=== PATIENT | female | born 1960 | race Caucasian/White ===

== ENCOUNTER 2023-10-11 19:28 | Emergency (ER) | payer BC, SELFPAY ==
[2023-10-11 19:32] VITALS: BP 127/76
[2023-10-11] MEDS: ZOFRAN ODT (ORALLY DISINTEGRATING) 4 MG PO (19:59)
[2023-10-11 20:01] LABS: % Basophils 0.4 % (0-2); % Eosinophils 0.2 % (0-6); % Immature Granulocytes 0.2 % (0-0.5); % Lymphocytes 43.4 % (20.5-51.1); % Neutrophils 42.8 % (42.2-75.2); Absolute Monocytes 0.6 10^3/uL (0.1-0.6); Absolute Neutrophils 1.9 10^3/uL (1.4-6.5); Hematocrit 27.3 % (37.0-47.0); Hemoglobin 8.7 g/dL (12.0-16.0); Mean Corp Hgb Conc. 31.9 g/dL (33.0-37.0); Mean Corpuscular Hgb 23.5 pg (27.0-31.0); Mean Corpuscular Volume 73.8 fL (81.0-99.0); Mean Platelet Volume 9.9 fL (7.4-10.4); Nucleated Red Blood Cells % 0 %; Platelet Count 341 10^3/uL (130-400); Red Cell Dist. Width 14.9 % (11.5-14.5); White Blood Cell Count 4.5 10^3/uL (4.8-10.8)
[2023-10-11 20:05] LABS: Urine Albumin Negative (Neg - Trace); Urine Bilirubin Negative (Negative); Urine Character Clear (Clear); Urine Color Yellow; Urine Glucose Negative (Negative); Urine Ketone Negative (Negative); Urine Leukocyte Trace (Negative); Urine Nitrite Negative (Negative); Urine Occult Blood Negative (Negative); Urine Urobilinogen Negative (Neg - 1+)
[2023-10-11 20:19] LABS: ALT (SGPT) 31 U/L (0-35); AST (SGOT) 37 U/L (14-36); Albumin 4.1 g/dl (3.5-5.0); Alkaline Phosphatase 95 U/L (38-126); Blood Urea Nitrogen 16 mg/dl (7-17); Calcium 9.4 mg/dl (8.4-10.2); Carbon Dioxide 25 mmol/L (22-30); Chloride 99 mmol/L (98-107); Glucose 90 mg/dl (70-99); Lipase 183 U/L (23-300); Potassium 4.7 mmol/L (3.5-5.1); Sodium 133 mmol/L (135-145); Total Bilirubin 0.3 mg/dl (0.2-1.3); Total Protein 6.5 g/dl (6.3-8.2); eGFR > 60.00
[2023-10-11 20:21] LABS: Urine Bacteria Few (Negative); Urine Red Blood Cell 0-2 /HPF (0-2); Urine Squamous Cell 0-2 /LPF (Few)
[2023-10-11 20:25] LABS: COVID-19 Antigen Negative (Negative)
--- NOTE | 2023-10-11 21:29 | ED.GENMED ---
History of Present Illness
General
Chief Complaint: Abdominal Symptoms
Source: patient
Exam Limitations: none
Time Seen by Provider: 10/11/23 21:05
History of Present Illness
History of Present Illness:
This is a 63 year old female that comes in with c/o diarrhea. States that she has had severe diarrhea for the past 5 days. States that she is going a little less today but has gone 12 times today. State that she has abd pain and she has not been
able to eat or drink as it goes right through her. States that she was in [facility] on a resort and she never left there. States that she came home on Tuesday and the diarrhea started on Tuesday. States that she may have had a fever on Tuesday.
States that she is nauseated and has a headache. Denies any chills, chest pain, SOB, vomiting, dizziness, urinary burning.
Past History
Past History
ED Past Medical History: Psychiatric (Anxiety); Negative Asthma, HTN, Hypercholesterolemia or NIDDM
ED Past Surgical History: None
Social History
Tobacco: Non-smoker
Alcohol: Occasional
Personal:
Living: with family
Review of Systems
Review of Systems
All Other Systems: ROS reviewed and negative except as documented in HPI and ROS
Constitutional: Reports fever (Questionable on Tuesday); Denies chills
EENT: Reports no symptoms
Respiratory: Reports no symptoms; Denies cough
Cardiac: Reports no symptoms; Denies chest pain
ABD/GI: Reports abdominal pain, nausea and diarrhea; Denies vomiting
: Reports no symptoms; Denies dysuria, frequency or urgency
Musculoskeletal: Reports no symptoms
Skin: Reports no symptoms
Neurological: Reports headache; Denies dizzy
Psychiatric: Reports no symptoms
Phy Exam
General Physical Exam
General Presentation: no apparent distress
General age: appears stated age
General Skin: warm and dry
General Habitus: normal
General Mental: alert
General Hydration: dry mucous membranes
ENT Exam
ENT Exam: TM's normal, pharynx normal and neck supple
Eye Exam
Eye Exam: EOMI
Cardiovascular Exam
Cardiovascular Exam: regular rate/rhythm, no edema, no murmur and normal peripheral pulses
Pulmonary Exam
Pulmonary Exam: lungs clear, no respiratory distress, no rales, chest non tender, no crackles, no rhonchi, no wheezing and no cough
Gastrointestinal Exam
Gastrointestinal Exam: soft, no organomegaly, no pulsatile mass, non distended, tender (Generalized tenderness with palpation) and other (Hyperactive bowel sounds)
Musculoskeletal Exam
Musculoskeletal Exam: full ROM and no edema
Skin Exam
Skin Exam: normal color, warm/dry, no rash and no petechia
Psychiatric Exam
Psychiatric Exam: normal mood/affect
Course
Orders/Labs/Results
Orders:
Orders
10/11/23 19:38
Electrocardiogram (*1) Urgent
Reason for Study: Abdominal Pain
EKG- Treatment ONCE
IV Insert/Care/Rem.- Treatment PRN
10/11/23 19:43
Complete Blood Count/With Diff Urgent
Comprehensive Metabolic Panel Urgent
Lipase Urgent
10/11/23 19:44
Ondansetron Orally Disint [Zofran Odt (Orally Disintegrating)] 4 mg .ROUTE .K-MED ONE
10/11/23 19:56
Urinalysis Reflex To Culture Urgent
Date Specimen was Collected: 10/11/23
Time Specimen was Collected: 19:38
Urine Microscopic Reflex Cult Urgent
10/11/23 19:59
Ondansetron Orally Disint [Zofran Odt (Orally Disintegrating)] 4 mg PO NOW STA
10/11/23 20:01
COVID-19 Antigen Urgent
Source: Nasal Swab
Comment: .
10/11/23 21:28
CT Abd/pel W Iv And Oral Contr Urgent
Comment:
Reason For Exam: Generalized abd pain
STOOL [C difficile Antigen & Toxins] Urgent
CARROLL Source: Feces/Stool
Specimen Description:
Date Specimen was Collected: 10/11/23
Time Specimen was Collected: 22:52
Stool Culture Urgent
CARROLL Source: Feces/Stool
Specimen Description:
Date Specimen was Collected: 10/11/23
Time Specimen was Collected: 22:52
Stool For WBC Urgent
CARROLL Source: Feces/Stool
Specimen Description:
Date Specimen was Collected: 10/11/23
Time Specimen was Collected: 22:52
0.9% Sodium Chloride 1000 ml [Nss] 1,000 ml IV BOLUS
Iohexol [Omnipaque] See Protocol PO NOW STA
Abnormal Lab Results
10/11/23 10/11/23
19:43 19:56
WBC 4.5 L 10^3/uL
(4.8-10.8)
RBC 3.70 L 10^6/uL
(4.20-5.40)
Hgb 8.7 L g/dL
(12.0-16.0)
Hct 27.3 L %
(37.0-47.0)
MCV 73.8 L fL
(81.0-99.0)
MCH 23.5 L pg
(27.0-31.0)
MCHC 31.9 L g/dL
(33.0-37.0)
RDW 14.9 H %
(11.5-14.5)
Monocytes % 13.0 H %
(1.7-9.3)
Sodium 133 L mmol/L
(135-145)
AST 37 H U/L
(14-36)
Leukocyte Esterase Rfl Trace A
(Negative)
Urine Bacteria (Reflex) Few A
(Negative)
10/11/23 19:43
10/11/23 19:43
WBC slighty low. H/H low Anemic, Sodium slightly low. AST very slightly elevated. Urine negative for infection. COVID negative. Lipase normal at 183
Vital Signs
Initial and Last Documented VS:
Initial Vital Signs
Temp Pulse Resp BP Pulse Ox
98.6 F 89 20 127/76 100
10/11/23 19:32 10/11/23 19:32 10/11/23 19:32 10/11/23 19:32 10/11/23 19:32
Last Documented Vital Signs
Temp Pulse Resp BP Pulse Ox
98.6 F 81 20 115/72 98
10/11/23 19:32 10/11/23 21:55 10/11/23 19:32 10/11/23 21:55 10/11/23 21:55
MDM/Problems Addressed
Differential Diagnosis Includes:
Colitis, Enteritis, Travel diarrhea
MDM/Problems Addressed:
This is a 63 year old female that comes in with c/o abd pain and diarrhea. States that she has severe diarrhea for the past 5 days. States that it has stopped some in the past 2 days but she has gone 12 times today. States that she can't eat or keep
anything in her as it runs right through.
Will get labs. CT scan, Give IV fluids and Medicated for nausea.
Back into see patient. Explained that her Blood work shows anemia and that her CT shows that she has enteritis. Explained that this will go away like it came. Patient to stay away form milk and milk products. Increase her water intake to 8-8oz
glasses daily. Try eating chicken, rice and potatoes as they are easily digested. Patient can use Imodium as needed. Follow up with the family doctor. Return with fever, increased abd pain, or any other concerns.
Chronic conditions affecting care:
NA
Acute Exacerbation and/or Progression of Chronic Illness:
NA
*Radiology
Radiology exam reviewed: radiology read reviewed (CT- Night hawk- Diffuse small bowel wall thickening, compatible with underlying enteritis. Fluid within the colon, compatible ith underling diarrhea state. No bowel obstruction. Gallbladder is
decompressed. MIld periportal edema, likely in the setting of volume resuscitation. Incidentals: ) and all reviewed NAD by ED Provider (CT cont-No obstructive uropathy. No hepatic or pancreatic mass. CBD measures up to 6mm, within normal limits for
age. No abdominal aortic aneurysm. No acute osseous abnormality. No acute abnormality within the viualized lungs. No acute abnormality within the visualized soft tissues. )
*Pulse Oximetry
Patient hypoxic: no
*EKG
Interpreted by ED Provider?: NA
Rate: EKG- N/A
*Irrigation System Installer Interpretation
Rate: Irrigation System Installer- N/A
*Critical Care Note
Total Time (30-74mins, 75-104mins- exclusive of procedures): Not Applicable
ED Attending Note
-
Portions of this chart may have been created with voice recognition software.� Occasional wrong word or��sound alike� substitutions may have occurred due to the inherent limitations of voice recognition software.
Discharge Plan
Departure
Patient Disposition: Home (Routine Discharge)
Date of Disposition: 10/12/23
Time of Disposition: 00:47
Patient with high blood pressure during this ER visit?: No
Condition: Good
Covid-19: Negative COVID-19
Discharge Problem:
Enteritis
Instructions: Diarrhea in teens and adults
Referrals:
NONE,* [Family Provider] -
Activity Restrictions/Additional Instructions:
As discussed, your blood work shows that you are anemic. This can be followed up by the family doctor. Your CT shows that you have Enteritis. This is a viral syndrome that will go away just like it came. Please stay away form Milk and milk products
as long as you have diarrhea. Things that are easily digested is Chicken, rice and potatoes. You can also eat bananas as they are binding. Please increase your water intake to 8-8oz glasses daily. Follow up with the family doctor. You may use
Imodium as needed. IF YOU HAVE ANY FEVER, INCREASED OR CHANGING ABD PAIN, OR YOU HAVE ANY OTHER CONCERNS PLEASE RETURN TO THE EMERGENCY ROOM.
Interventions
Interventions:
*Risk Screen - Suicide Last Done: 10/11/23 19:32
*General Assessment Last Done: 10/11/23 19:32
*Neglect/Abuse Screening Last Done: 10/11/23 19:32
ED- Fall Risk Assessment Last Done: 10/11/23 19:32
*ED COVID-19 Vaccine History Last Done: 10/11/23 19:32
Discharge Date and Time
Print Language: ARMENIAN
[2023-10-11] MEDS: NSS 1000 IV (21:49)
[2023-10-11] MEDS: OMNIPAQUE 50 ML PO (21:50)
[2023-10-11 21:55] VITALS: BP 115/72
[2023-10-11 21:56] VITALS: BMI 21.2
[2023-10-12 00:54] VITALS: BP 133/81
== END 2023-10-12 00:55 | disposition home or self-care (01) ==
LOC: EMR 19:28
PROVIDERS: Emergency Medicine; EMERGENCY PHYSICIAN Emergency Medicine
DX: K52.9 Noninfective gastroenteritis and colitis, unspecified (principal); R19.7 Diarrhea, unspecified; F41.9 Anxiety disorder, unspecified; D64.9 Anemia, unspecified
CPT/HCPCS: 99284; 96360; 74177; 80053; 81003; 81015; 83690; 85025; 87045; 87046; 87077; 87324; 87427; 87449; 87811; 89055; 93005; Q9967

== ENCOUNTER 2023-10-15 08:45 | Emergency (ER) | payer BC, SELFPAY ==
[2023-10-15] VITALS (7 sets, daily range): BP systolic 114–134; BP diastolic 71–83; BMI 24.2
--- NOTE | 2023-10-15 09:54 | ED.GENMED ---
History of Present Illness
General
Chief Complaint: Abdominal Pain
Source: patient
Exam Limitations: none
Time Seen by Provider: 10/15/23 09:45
Nursing documentation reviewed up to this point in time: agreed with
History of Present Illness
History of Present Illness:
63-year-old female presents to the ER complaining of diarrhea. Patient was seen here April 12 4 days ago also for diarrhea. At that time she had diarrhea for the past 5 days after being in [place] patient presents back today with continued
diarrhea. Diarrhea has been over 10 days. She complains of at least 20 episodes of watery diarrhea per day with eating or drinking. She is mildly nauseous and does have some abdominal pain with symptoms. She feels extremely weak and wiped out.
I did review stool cultures from last admission which were negative. She was also found to be anemic on prior ED visit but was not aware of this prior to coming here to the ER on previous visit.
Past History
Past History
ED Past Medical History: Psychiatric (Anxiety); Negative Asthma, HTN, Hypercholesterolemia or NIDDM
ED Past Surgical History: None
Social History
Tobacco: Non-smoker
Alcohol: Occasional
Personal:
Living: with family
Review of Systems
Review of Systems
Allergies reviewed?: Yes
All Other Systems: ROS reviewed and negative except as documented in HPI and ROS
Constitutional: Reports fatigue; Denies fever
EENT: Reports no symptoms
Respiratory: Reports no symptoms
ABD/GI: Reports abdominal pain, nausea and diarrhea; Denies vomiting
Musculoskeletal: Reports no symptoms
Skin: Reports no symptoms
Neurological: Reports no symptoms
Psychiatric: Reports no symptoms
Phy Exam
General Physical Exam
General Presentation: no apparent distress
General age: appears stated age
General Skin: warm and dry
General Habitus: normal
General Mental: alert
General Hydration: appears well hydrated
Gastrointestinal Exam
Gastrointestinal Exam: soft and other (non specific abdominal tenderness)
Neurological Exam
Neurological Exam: alert and oriented x3
Musculoskeletal Exam
Musculoskeletal Exam: full ROM
Skin Exam
Skin Exam: normal color and warm/dry
Psychiatric Exam
Psychiatric Exam: normal mood/affect
Course
Orders/Labs/Results
Orders:
Orders
10/15/23 10:12
0.9% Sodium Chloride 1000 ml [Nss] 1,000 ml IV BOLUS
Ondansetron Injectable [Zofran] 4 mg IV NOW STA
10/15/23 10:22
Complete Blood Count/With Diff Urgent
Comprehensive Metabolic Panel Urgent
Lipase Urgent
10/15/23 12:38
Ciprofloxacin HCl [Cipro] 500 mg PO NOW STA
Abnormal Lab Results
10/15/23
10:22
RBC 4.10 L 10^6/uL
(4.20-5.40)
Hgb 9.7 L g/dL
(12.0-16.0)
Hct 30.8 L %
(37.0-47.0)
MCV 75.1 L fL
(81.0-99.0)
MCH 23.7 L pg
(27.0-31.0)
MCHC 31.5 L g/dL
(33.0-37.0)
RDW 14.8 H %
(11.5-14.5)
Plt Count 424 H D 10^3/uL
(130-400)
Immature Gran % 0.8 H %
(0-0.5)
Monocytes % 10.4 H %
(1.7-9.3)
Glucose 100 H mg/dl
(70-99)
AST 52 H U/L
(14-36)
ALT 38 H U/L
(0-35)
Alkaline Phosphatase 142 H U/L
(38-126)
10/15/23 10:22
10/15/23 10:22
Vital Signs
Initial and Last Documented VS:
Initial Vital Signs
Temp Pulse Resp BP Pulse Ox
98.8 F 107 16 114/71 97
10/15/23 09:01 10/15/23 09:01 10/15/23 09:01 10/15/23 09:01 10/15/23 09:01
Last Documented Vital Signs
Temp Pulse Resp BP Pulse Ox
97.6 F 89 14 130/71 98
10/15/23 12:41 10/15/23 12:41 10/15/23 12:41 10/15/23 12:41 10/15/23 12:41
MDM/Problems Addressed
Differential Diagnosis Includes:
Not limited to traveler's diarrhea, dehydration, electrolyte abnormality
MDM/Problems Addressed:
63-year-old female presents to the ER for continued diarrhea. Patient was seen here 10/10. Prior to that she was in [place] came home on a Tuesday and 2 days later on Tuesday developed diarrhea. Since then she has around 20 x /day of liquid
diarrhea.
CAT scan did show findings at that time consistent with enteritis. Patient back because of continued diarrhea. She presents awake alert no acute distress.
Patient received some nausea medicine 2 L of fluid. No fever white count normal hemoglobin was in the eights several days ago however was 9.7 here in the ER possibly related to mild dehydration. LFTs very minimally elevated. Patient has had no
episodes of diarrhea here. Stool cultures were checked from previous ER visit and negative.
Patient would like to go home w
As discussed with ED physician will discharge on Cipro 500 mg twice daily for 3 days will also instruct patient to take Imodium. Discussed to return if any worsening of symptoms. Not limited to travel
*Pulse Oximetry
Patient hypoxic: no
*Critical Care Note
Total Time (30-74mins, 75-104mins- exclusive of procedures): Not Applicable
Data Reviewed
Review of Other/Old Records Reveals: Labs, Radiology Studies and Other (Previous scan previous ER visit and labs reviewed)
ED Attending Note
-
Portions of this chart may have been created with voice recognition software.� Occasional wrong word or��sound alike� substitutions may have occurred due to the inherent limitations of voice recognition software.
Discharge Plan
Departure
Patient Disposition: Home (Routine Discharge)
Date of Disposition: 10/15/23
Time of Disposition: 13:41
Patient with high blood pressure during this ER visit?: No
Covid-19: Not Applicable
Discharge Problem:
Diarrhea, travelers'
Instructions: Diarrhea in teens and adults
Prescriptions:
New
ciprofloxacin HCl [Cipro] 500 mg tablet
500 mg PO BID Qty: 5 0RF
Referrals:
NONE,* [Family Provider] -
Activity Restrictions/Additional Instructions:
As discussed you may take Imodium. A prescription for Cipro 500 mg twice daily for the next 2 days was sent to your pharmacy since you were given 1 dose here in the ER 5 tablets were prescribed. Take as directed. [facility] diet. Stay well-hydrated.
In addition follow-up with your family doctor in the next week for reevaluation of your symptoms and also for lab recheck. You are found to be anemic again with a low hemoglobin also your liver functions are mildly elevated likely to your symptoms.
These will need to be rechecked in the next week by family doctor. Return if any worsening of symptoms.
Interventions
Interventions:
*Risk Screen - Suicide Last Done: 10/15/23 10:25
*General Assessment Last Done: 10/15/23 10:25
*Neglect/Abuse Screening Last Done: 10/15/23 10:25
ED- Fall Risk Assessment Last Done: 10/15/23 10:25
*ED COVID-19 Vaccine History Last Done: 10/15/23 10:25
IX-Oqoing-Kvtsxvkhbk Assessment Last Done: 10/15/23 10:25
Discharge Date and Time
Print Language: SLOVENIAN
[2023-10-15] MEDS: NSS 1000 IV (10:16)
[2023-10-15] MEDS: ZOFRAN 4 MG IV (10:16)
[2023-10-15 10:34] LABS: Hematocrit 30.8 % (37.0-47.0); Hemoglobin 9.7 g/dL (12.0-16.0); Mean Corp Hgb Conc. 31.5 g/dL (33.0-37.0); Mean Corpuscular Hgb 23.7 pg (27.0-31.0); Mean Corpuscular Volume 75.1 fL (81.0-99.0); Mean Platelet Volume 9.7 fL (7.4-10.4); Platelet Count 424 10^3/uL (130-400); Red Cell Dist. Width 14.8 % (11.5-14.5); White Blood Cell Count 5.3 10^3/uL (4.8-10.8)
[2023-10-15 10:49] LABS: ALT (SGPT) 38 U/L (0-35); AST (SGOT) 52 U/L (14-36); Albumin 4.2 g/dl (3.5-5.0); Alkaline Phosphatase 142 U/L (38-126); Blood Urea Nitrogen 17 mg/dl (7-17); Calcium 9.5 mg/dl (8.4-10.2); Carbon Dioxide 25 mmol/L (22-30); Chloride 102 mmol/L (98-107); Estimated Creatinine Clearance 59 ml/min; Glucose 100 mg/dl (70-99); Lipase 165 U/L (23-300); Potassium 4.4 mmol/L (3.5-5.1); Sodium 135 mmol/L (135-145); Total Bilirubin 0.3 mg/dl (0.2-1.3); Total Protein 6.6 g/dl (6.3-8.2); eGFR > 60.00
[2023-10-15 11:10] LABS: % Basophils 0.6 % (0-2); % Immature Granulocytes 0.8 % (0-0.5); % Lymphocytes 22.4 % (20.5-51.1); % Monocytes 10.4 % (1.7-9.3); % Neutrophils 65.8 % (42.2-75.2); Absolute Lymphocytes 1.2 10^3/uL (1.2-3.4); Absolute Monocytes 0.6 10^3/uL (0.1-0.6); Absolute Neutrophils 3.5 10^3/uL (1.4-6.5); Nucleated Red Blood Cells % 0 %
[2023-10-15] MEDS: CIPRO 500 MG PO (12:46)
== END 2023-10-15 14:58 | disposition home or self-care (01) ==
LOC: EMR 08:45
PROVIDERS: Nurse Practitioner; EMERGENCY PHYSICIAN Emergency Medicine
DX: R19.7 Diarrhea, unspecified (principal); R11.0 Nausea; R10.9 Unspecified abdominal pain; R53.1 Weakness; D64.9 Anemia, unspecified; F41.9 Anxiety disorder, unspecified
CPT/HCPCS: 99284; 96374; 96361; 80053; 83690; 85025

== ENCOUNTER 2023-10-21 09:43 | Emergency (ER) | payer BC, SELFPAY ==
[2023-10-21 09:44] VITALS: BP 103/66
--- NOTE | 2023-10-21 11:10 | ED.GENMED ---
History of Present Illness
General
Chief Complaint: Abdominal Symptoms
Time Seen by Provider: 10/21/23 10:56
History of Present Illness
History of Present Illness:
63-year-old previous female previously healthy female presents to the emergency department for evaluation of intractable diarrhea for the past 15 days. Is been seen in this emergency department on 2 separate occasions for the same complaint.
Initially she underwent a CT scan that showed mild enteritis and was diagnosed with a likely viral syndrome and supportive care was recommended. She followed up several days later with worsening symptoms and was diagnosed with presumed traveler's
diarrhea despite stool studies being negative, was treated with a 3-day course of ciprofloxacin. She states since completing the Cipro her diarrhea transiently improved however has again worsened. She reports a watery diarrhea in excess of 10
episodes per day with no blood. She also reports increased indigestion since completing Cipro. No fevers or chills. Feels generally weak as a result of fluid loss. Symptoms started after traveling to [place], stating [facility] denies any food
ingestion from roadside vendors
Past History
Past History
ED Past Medical History: Psychiatric (Anxiety); Negative Asthma, HTN, Hypercholesterolemia or NIDDM
ED Past Surgical History: None
Social History
Tobacco: Non-smoker
Alcohol: Occasional
Personal:
Living: with family
Review of Systems
Review of Systems
Allergies reviewed?: Yes
All Other Systems: ROS reviewed and negative except as documented in HPI and ROS
Phy Exam
Physical Exam
Physical Exam:
GEN: Well appearing, NAD, WDWN
HEENT: Oral mucosa moist, no scleral icterus
Cardiac: Regular rate
Lung: No respiratory distress, no tachypnea
Abdomen: Soft, generalized tenderness to all 4 quadrants with no rigidity or peritoneal signs
MSK: No gross deformity or injuries
Skin: Good color, no pallor or jaundice, no rashes
Neuro: AO x3, moves all extremities freely
Psych: Calm, cooperative
Course
Orders/Labs/Results
Orders:
Orders
10/21/23 09:47
EKG [Electrocardiogram (*1)] Urgent
Reason for Study: Abdominal Pain
10/21/23 09:48
EKG- Treatment ONCE
10/21/23 11:10
Lactated Ringers [Lr] 1,000 ml IV BOLUS
10/21/23 11:19
Complete Blood Count/No Diff Urgent
Comprehensive Metabolic Panel Urgent
10/21/23 12:58
Stool For WBC Urgent
CARROLL Source: Feces/Stool
Specimen Description:
Date Specimen was Collected: 10/21/23
Time Specimen was Collected: 13:00
10/21/23 13:02
Calprotectin, Fecal [S] Urgent
Date Specimen was Collected: 10/21/23
Time Specimen was Collected: 13:00
C DIFF [C difficile Antigen & Toxins] Urgent
CARROLL Source: Feces/Stool
Specimen Description:
Date Specimen was Collected: 10/21/23
Time Specimen was Collected: 13:00
Ova & Parasites Giardia/Crypto AG [Giardia/Cryptosporidium Ag] Urgent
CARROLL Source: Feces/Stool
Specimen Description:
Date Specimen was Collected: 10/21/23
Time Specimen was Collected: 13:00
Stool Culture Urgent
CARROLL Source: Feces/Stool
Specimen Description:
Date Specimen was Collected: 10/21/23
Time Specimen was Collected: 13:00
Abnormal Lab Results
10/21/23
11:19
RBC 3.74 L 10^6/uL
(4.20-5.40)
Hgb 8.7 L g/dL
(12.0-16.0)
Hct 27.6 L %
(37.0-47.0)
MCV 73.8 L fL
(81.0-99.0)
MCH 23.3 L pg
(27.0-31.0)
MCHC 31.5 L g/dL
(33.0-37.0)
RDW 14.8 H %
(11.5-14.5)
Plt Count 426 H 10^3/uL
(130-400)
AST 70 H U/L
(14-36)
ALT 66 H U/L
(0-35)
Total Protein 6.2 L g/dl
(6.3-8.2)
10/21/23 11:19
10/21/23 11:19
Vital Signs
Initial and Last Documented VS:
Initial Vital Signs
Temp Pulse Resp BP Pulse Ox
98.9 F 89 16 103/66 98
10/21/23 09:44 10/21/23 09:44 10/21/23 09:44 10/21/23 09:44 10/21/23 09:44
Last Documented Vital Signs
Temp Pulse Resp BP Pulse Ox
98.9 F 87 18 104/68 98
10/21/23 09:44 10/21/23 11:32 10/21/23 11:32 10/21/23 11:32 10/21/23 11:32
MDM/Problems Addressed
MDM/Problems Addressed:
Patient's labs are unremarkable however C. difficile is positive. This is likely on the basis of her recent Cipro administration as opposed to the cause of her ongoing diarrhea nevertheless we will treat with vancomycin and refer to GI as an
outpatient for follow-up
*Critical Care Note
Total Time (30-74mins, 75-104mins- exclusive of procedures): Not Applicable
ED Attending Note
-
Portions of this chart may have been created with voice recognition software.� Occasional wrong word or��sound alike� substitutions may have occurred due to the inherent limitations of voice recognition software.
Discharge Plan
Departure
Patient Disposition: Home (Routine Discharge)
Date of Disposition: 10/21/23
Time of Disposition: 13:21
Patient with high blood pressure during this ER visit?: No
Discharge Problem:
Diarrhea, C. difficile diarrhea
Instructions: Clostridioides difficile ED
Prescriptions:
New
vancomycin 125 mg capsule
125 mg PO QID 10 Days Qty: 40 0RF
No Action
ciprofloxacin HCl [Cipro] 500 mg tablet
500 mg PO BID Qty: 5 0RF
Referrals:
Ish Sanchez MD [Active] -
Activity Restrictions/Additional Instructions:
If you have not received a phone call regarding test results tomorrow, please begin using Imodium as needed for diarrhea
Follow up with GI [facility]
Interventions
Interventions:
*Risk Screen - Suicide Last Done: 10/21/23 09:44
*General Assessment Last Done: 10/21/23 09:44
*Neglect/Abuse Screening Last Done: 10/21/23 09:44
ED- Fall Risk Assessment Last Done: 10/21/23 11:08
FD-Jxydsd-Erxzvqajno Assessment Last Done: 10/21/23 11:08
Discharge Date and Time
Print Language: CA[place] ISLANDER
[2023-10-21] MEDS: LR 1000 IV (11:21)
[2023-10-21 11:32] VITALS: BP 104/68
[2023-10-21 11:36] LABS: Hematocrit 27.6 % (37.0-47.0); Hemoglobin 8.7 g/dL (12.0-16.0); Mean Corp Hgb Conc. 31.5 g/dL (33.0-37.0); Mean Corpuscular Hgb 23.3 pg (27.0-31.0); Mean Corpuscular Volume 73.8 fL (81.0-99.0); Mean Platelet Volume 9.8 fL (7.4-10.4); Platelet Count 426 10^3/uL (130-400); Red Blood Cell Count 3.74 10^6/uL (4.20-5.40); Red Cell Dist. Width 14.8 % (11.5-14.5); White Blood Cell Count 5.1 10^3/uL (4.8-10.8)
[2023-10-21 11:52] LABS: ALT (SGPT) 66 U/L (0-35); AST (SGOT) 70 U/L (14-36); Albumin 3.9 g/dl (3.5-5.0); Alkaline Phosphatase 99 U/L (38-126); Blood Urea Nitrogen 16 mg/dl (7-17); Calcium 9.3 mg/dl (8.4-10.2); Carbon Dioxide 28 mmol/L (22-30); Chloride 103 mmol/L (98-107); Glucose 92 mg/dl (70-99); Potassium 4.4 mmol/L (3.5-5.1); Sodium 136 mmol/L (135-145); Total Bilirubin 0.2 mg/dl (0.2-1.3); Total Protein 6.2 g/dl (6.3-8.2); eGFR > 60.00
[2023-10-21 14:54] VITALS: BP 110/72
[2023-10-25 21:10] LABS: Calprotectin, Fecal <5 ug/g (<=49)
== END 2023-10-21 16:45 | disposition home or self-care (01) ==
LOC: EMR 09:43
PROVIDERS: Physician Assistant; EMERGENCY PHYSICIAN Emergency Medicine
DX: A04.72 Enterocolitis due to Clostridium difficile, not specified as recurrent (principal); R19.7 Diarrhea, unspecified; F41.9 Anxiety disorder, unspecified
CPT/HCPCS: 99283; 96360; 80053; 83993; 85027; 87045; 87046; 87324; 87328; 87329; 87427; 87449; 89055; 93005

== ENCOUNTER 2023-11-07 17:33 | Inpatient (IN) | payer BC, SELFPAY ==
[2023-11-07] VITALS (14 sets, daily range): BP systolic 102–121; BP diastolic 55–91; PULSE 96–146
[2023-11-07 13:41] LABS: % Basophils 0.6 % (0-2); % Immature Granulocytes 0.2 % (0-0.5); % Monocytes 8.8 % (1.7-9.3); % Neutrophils 56.4 % (42.2-75.2); Absolute Lymphocytes 1.7 10^3/uL (1.2-3.4); Absolute Monocytes 0.4 10^3/uL (0.1-0.6); Absolute Neutrophils 2.8 10^3/uL (1.4-6.5); Hematocrit 31.5 % (37.0-47.0); Hemoglobin 9.8 g/dL (12.0-16.0); Mean Corp Hgb Conc. 31.1 g/dL (33.0-37.0); Mean Corpuscular Hgb 22.7 pg (27.0-31.0); Mean Corpuscular Volume 73.1 fL (81.0-99.0); Mean Platelet Volume 10.2 fL (7.4-10.4); Nucleated Red Blood Cells % 0 %; Platelet Count 313 10^3/uL (130-400); Red Blood Cell Count 4.31 10^6/uL (4.20-5.40); Red Cell Dist. Width 14.9 % (11.5-14.5)
[2023-11-07 14:07] LABS: ALT (SGPT) 44 U/L (0-35); AST (SGOT) 51 U/L (14-36); Albumin 4.4 g/dl (3.5-5.0); Alkaline Phosphatase 98 U/L (38-126); Blood Urea Nitrogen 18 mg/dl (7-17); Calcium 9.7 mg/dl (8.4-10.2); Carbon Dioxide 23 mmol/L (22-30); Chloride 99 mmol/L (98-107); Glucose 84 mg/dl (70-99); Lipase 241 U/L (23-300); Potassium 4.3 mmol/L (3.5-5.1); Sodium 134 mmol/L (135-145); Total Bilirubin 0.4 mg/dl (0.2-1.3); Total Protein 6.7 g/dl (6.3-8.2); eGFR > 60.00
[2023-11-07] MEDS: NSS 1000 IV ×3 (14:58→18:52)
--- NOTE | 2023-11-07 16:09 | ED.GENMED ---
History of Present Illness
General
Chief Complaint: Fainting/Passed Out
Source: patient and spouse
Exam Limitations: none
Time Seen by Provider: 11/07/23 14:02
History of Present Illness
History of Present Illness:
63-year-old female presents with persistent diarrhea and syncope. Patient has had off-and-on diarrhea for several weeks. It started with a trip to [place]. She subsequently eventually was put on Cipro. Subsequent to that it seemed a little better
but then came back and tested positive for C. difficile. She seemed improved after vancomycin but on Tuesday her diarrhea returned and persisted. The patient states that today she stood up and passed out. Patient has been very weak and has lost 10
pounds. She has seen gastroenterology. Patient denies fevers but just feels profoundly weak. No melena or hematochezia. Currently no abdominal pain. She will get cramping when she is about to have diarrhea.
Past History
Past History
ED Past Medical History: Psychiatric (Anxiety)
ED Past Surgical History: None
Social History
Tobacco: Non-smoker
Alcohol: Occasional
Personal:
Living: with family
Phy Exam
Physical Exam
Physical Exam:
CONSTITUTIONAL Patient alert and oriented to person, place and time. Pale, weak. Vital signs reviewed.
HEAD abrasion to the bridge of the nose.
EYES eyelids normal to inspection, Pupils equally round and reactive to light, Extraocular muscles intact, Conjunctiva normal, Sclera normal.
NECK normal range of motion, Trachea midline, no jugular venous distention.
RESPIRATORY CHEST No respiratory distress noted, Chest expansion equal, Bilateral breath sounds clear.
CARDIOVASCULAR regular rate and rhythm, Heart sounds normal.
ABDOMEN abdomen nontender, Bowel sounds normal. No distention.
BACK normal inspection, no obvious deformities
UPPER EXTREMITY range of motion normal, Motor strength normal, no cyanosis, no edema.
LOWER EXTREMITY range of motion normal, Motor strength normal, no cyanosis, no edema.
NEURO Speech normal, No focal motor deficits, [place] coma scale 15, Memory normal, Cranial Nerves intact to screening exam.
SKIN skin warm, dry, and normal in color.
PSYCHIATRIC patient oriented to person place and time, Normal affect.
Course
Orders/Labs/Results
Orders:
Orders
11/07/23 12:38
ECG [Electrocardiogram (*1)] Urgent
Reason for Study: Syncope
11/07/23 12:39
EKG- Treatment ONCE
11/07/23 13:32
CBC/With Diff [Complete Blood Count/With Diff] Urgent
CMP [Comprehensive Metabolic Panel] Urgent
Lipase Urgent
11/07/23 14:03
Orthostatic VS- Treatment ONCE
11/07/23 14:44
0.9% Sodium Chloride 1000 ml [Nss] 1,000 ml IV BOLUS
11/07/23 14:56
CDIFF [C difficile Antigen & Toxins] Urgent
CARROLL Source: Feces/Stool
Specimen Description:
Stool Culture Urgent
CARROLL Source: Feces/Stool
Specimen Description:
Abnormal Lab Results
11/07/23
13:32
Hgb 9.8 L g/dL
(12.0-16.0)
Hct 31.5 L %
(37.0-47.0)
MCV 73.1 L fL
(81.0-99.0)
MCH 22.7 L pg
(27.0-31.0)
MCHC 31.1 L g/dL
(33.0-37.0)
RDW 14.9 H %
(11.5-14.5)
Sodium 134 L mmol/L
(135-145)
BUN 18 H mg/dl
(7-17)
AST 51 H U/L
(14-36)
ALT 44 H U/L
(0-35)
11/07/23 13:32
11/07/23 13:32
Vital Signs
Initial and Last Documented VS:
Initial Vital Signs
Temp Pulse Resp Pulse Ox
99.3 F 118 22 100
11/07/23 12:34 11/07/23 12:34 11/07/23 12:34 11/07/23 12:34
Last Documented Vital Signs
Temp Pulse Resp BP Pulse Ox
99.3 F 90 15 102/55 99
11/07/23 12:34 11/07/23 16:00 11/07/23 16:00 11/07/23 16:00 11/07/23 16:00
MDM/Problems Addressed
MDM/Problems Addressed:
Profound diarrhea, orthostasis, dehydration
*Pulse Oximetry
Patient hypoxic: no
*Chucking Machine Set Up Operator Interpretation
Rate: tachycardiac
Interpretation: abnormal
Rhythm: sinus
*Critical Care Note
Total Time (30-74mins, 75-104mins- exclusive of procedures): Not Applicable
Data Reviewed
Review of Other/Old Records Reveals: Other (Prior cultures reviewed. Tested positive for C. difficile)
Source: patient and spouse
Prescriptions/Medications Considered But Not Given:
Consider antibiotics but hold off pending C. difficile and stool cultures
Patient Management
Discussion with other providers: Hospitalist
Escalation/DeEscalation of care consider admission/obs:
Patient tilts with a heart rate up to 150 when she stands. Has seen GI. Needs stool culture and C. difficile. For now admit for continued IV fluids
ED Attending Note
-
Portions of this chart may have been created with voice recognition software.� Occasional wrong word or��sound alike� substitutions may have occurred due to the inherent limitations of voice recognition software.
Discharge Plan
Departure
Patient Disposition: Admit
Date of Disposition: 11/07/23
Time of Disposition: 16:19
Admit to: Telemetry
Presentation/result/management discussed w/ accepting MD/DO: Hospitalist
Discharge Problem:
Diarrhea, Acute dehydration, Syncope, Orthostasis
Prescriptions:
No Action
ciprofloxacin HCl [Cipro] 500 mg tablet
500 mg PO BID Qty: 5 0RF
vancomycin 125 mg capsule
125 mg PO QID 10 Days Qty: 40 0RF
Referrals:
NONE,* [Family Provider] -
Interventions
Interventions:
*Risk Screen - Suicide Last Done: 11/07/23 12:34
*General Assessment Last Done: 11/07/23 12:34
*Neglect/Abuse Screening Last Done: 11/07/23 12:34
ED- Cardiac Assessment Last Done: 11/07/23 13:41
ED- Neurological Assessment Last Done: 11/07/23 13:41
Discharge Date and Time
Print Language: NOR[place] KOREAN
--- NOTE | 2023-11-07 16:40 | HPS.HSE ---
Addendum entered and electronically signed by Bobby Jenkins MD 11/07/23 18:17:
I saw and examined the patient.
The CIGARETTE ROLLER's note was reviewed and I agree with the note.
Patient is a 63-year-old female with past medical history of microcytic anemia/anxiety/depression came to ER for having ongoing significant diarrhea for last few days. Patient symptom initially started few weeks back and was initially treated for
traveler's diarrhea with levofloxacin. Patient visited [place] and on return had continued symptoms, came to ER on october and was diagnosed for first episode of C. difficile colitis, patient was provided 10 days of vancomycin therapy which
patient finished on . After finishing the course patient had some improvement in frequency of diarrhea although started to having again frequent stools. Anywhere between 5-10 for last few days. Patient have significant weight loss of 10
pounds, loss of energy. Patient is hesitant to eat. Ended up having a syncopal episode at home with patient losing completely consciousness. No injury reported. Patient was also noted tachycardic with minimal activity with heart rate going up to
150s in ER. Patient denies of having any significant fever episode. No blood in stool. No other cardiopulmonary complaints.
HEENT: No pallor, cyanosis, or jaundice. Throat clear.
NECK: Supple. No JVD.
RESPIRATORY: Lungs clear to auscultation.
CVS: S1, S2 normal. RRR. No murmur, rub or gallop.
ABDOMEN: Soft, non-tender. No distension. BS+/normal.
EXTREMITIES: No peripheral cyanosis or edema.
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 No focal deficits.
Subacute diarrrhea
C diff colitis on 10/21/23
-Patient initially had felt to be having traveler's diarrhea for which patient got levofloxacin course last month
-Patient got C. difficile colitis earlier this month diagnosed in ER and finished 10 days of oral vancomycin
-Patient presented fourth time for recurrence of diarrhea
-No electrolyte imbalance/afebrile/denies significant nausea/vomiting
-Suspecting relapse of C. difficile versus other etiology
-Check stool studies with ova and parasite and C. difficile.
-Maintain on low residue diet
-Maintain on IV fluid
-Will call GI versus ID depending on stool test finding
Syncope
-Presumed volume depletion related
-Patient blood pressure soft, and lower than normal baseline
-Continue monitoring
DVT PPX -scd
Full code
Original Note:
Family Physician
-
Family Physician: * NONE
Chief Complaint
-
Syncope and Diarrhea
History of Present Illness
Pt is a 63 yo F with past medical history of anemia and anxiety/depression presenting with persistent diarrhea and syncopal episode today. Pt reports severe diarrhea x 5 weeks which began 3 days after return from [place]. Pt states she has presented
to the ER multiple times and was initally treated with ciprofloxacin, then subsequently found to be positive for C Diff for which she completed a coarse of vancomycin on 10/31/23. She admits to 3-4 days of semi-formed stools but then diarrhea
recurred on Tuesday (11/05/23). She reports sxs of reflux relieved with use of Pepcid and Pepto Bismol. She admits to abdominal cramping relieved with defecation, fatigue, weakness, SOB on exertion and notes 10 lb weight loss over 5 weeks of
diarrhea. Pt also admits to syncope today. She does not recall specifics of the event but states her intent was to get up and go somewhere. She reports she was only out for a few minutes and hit her head on a door. She denies any previous episodes
of syncope. She denies fever, nausea, vomiting, cough, chest pain, palpitations, changes in vision, hematuria, hematochezia, melena, incontinence, and paresthesia.
Medical History
Past Medical History
Past Medical History: Reports Other
Additional Past Medical History:
Anxiety
Past Surgical History: Reports None
Social History
Tobacco: Non-smoker
Alcohol: Occasional
Personal:
Living: With Family
Family History
Family History: Not pertinent
Allergies / Home Medications
Allergies reflects when Allergies were last updated in [employer].
Home Medications with original date entered in [employer]
Allergy/Medication List:
Allergies
Allergy/AdvReac Type Severity Reaction Status Date / Time
No Known Allergies Allergy Verified 11/07/23 12:33
Home Medications
clonazepam 1 mg tablet 1 - 2 mg PO HSPRN PRN sleep 11/07/23
desvenlafaxine succinate 25 mg tablet,extended release 24 hr (Pristiq) 25 mg PO DAILY 11/07/23
Review of Systems
-
A 12 point ROS was completed and negative except as noted: Yes
Constitutional: Denies Fever or Chills
Respiratory: Denies Cough or Trouble Breathing
Cardiac: Reports Syncope; Denies Chest Pain or Palpitations
Abdomen/GI: Reports Diarrhea; Denies Abdominal Pain, Nausea or Vomiting
Physical Exam
Vital Signs
Vital Signs
Temp Pulse Resp BP Pulse Ox
99.3 F 88 16 102/55 97
11/07/23 12:34 11/07/23 16:30 11/07/23 16:30 11/07/23 16:00 11/07/23 16:30
Physical Exam
General: Comfortable and Conversant
HEENT: Anicteric and Moist mucous membranes
Respiratory: Clear and Non Labored Respirations
Cardiac: S1/S2 and Regular Rhythm
GI: Soft and Non Tender
Rectal: Deferred by Provider
Musculoskeletal: No Clubbing, No Cyanosis and No Edema
Skin: Warm and Dry
Neuro: Awake, Alert, Oriented and Nonfocal/grossly intact
Psych: Calm
Laboratory Results
-
11/07/23 13:32
11/07/23 13:32
Laboratory Results
Total Bilirubin 0.4 mg/dl (0.2-1.3) 11/07/23 13:32
AST 51 U/L (14-36) H 11/07/23 13:32
ALT 44 U/L (0-35) H 11/07/23 13:32
Alkaline Phosphatase 98 U/L (38-126) 11/07/23 13:32
Lipase 241 U/L (23-300) 11/07/23 13:32
Data Reviewed
-
Lab Data: Labs Reviewed by me
Impression/Plan
-
Syncope secondary to Orthostasis
-Monitor on Telemetry
-Continue IVFs
-Monitor Orthostatic VS
Recurrent Diarrhea, concern for Recurrent C-Diff
-Restart Oral Vancomycin
-Add probiotics
-Recheck stool studies
Microcytic Anemia
-Check iron studies
Anxiety / Depression
-Continue Pristiq
DVT proph: SCDs
Code Status: Full Code
[2023-11-07 17:14] LABS: Iron 35 ug/dl (37-170)
[2023-11-07 17:24] LABS: Percent Saturation 8 % (20-50); Total Iron Binding Capacity 437 ug/dl (265-497)
[2023-11-07 18:08] LABS: Ferritin 4.9 ng/ml (11.1-264.0)
[2023-11-07 18:39] LABS: Folate > 20.0 ng/ml (2.76-20); Vitamin B12 > 1000 pg/ml (239-931)
--- NOTE | 2023-11-07 18:57 | PTCARENOTE ---
Patient arrived to [address] [place] [address] [id number] with at side. RN oriented pt and family to room, completed admission documentation, started IVF per order, vital signs are stable. Updated patient on plan of care for the evening
[2023-11-07] MEDS: FIRVANQ 125 MG PO ×2 (19:48→23:07)
[2023-11-07] MEDS: PEPCID 20 MG PO (20:46)
[2023-11-07] MEDS: FLORASTOR 250 MG PO (20:46)
[2023-11-08] VITALS (7 sets, daily range): BP systolic 98–120; BP diastolic 60–73; PULSE 78–84; BMI 19.9
[2023-11-08] MEDS: NSS 1000 IV ×3 (00:49→14:37)
[2023-11-08] MEDS: FIRVANQ 125 MG PO ×3 (05:42→17:52)
[2023-11-08 06:55] LABS: Hematocrit 26.1 % (37.0-47.0); Hemoglobin 8.1 g/dL (12.0-16.0); Mean Corpuscular Hgb 23.1 pg (27.0-31.0); Mean Corpuscular Volume 74.6 fL (81.0-99.0); Mean Platelet Volume 10.5 fL (7.4-10.4); Platelet Count 246 10^3/uL (130-400); White Blood Cell Count 4.6 10^3/uL (4.8-10.8)
[2023-11-08 07:17] LABS: Blood Urea Nitrogen 14 mg/dl (7-17); Calcium 8.7 mg/dl (8.4-10.2); Carbon Dioxide 22 mmol/L (22-30); Chloride 107 mmol/L (98-107); Estimated Creatinine Clearance 57 ml/min; Glucose 81 mg/dl (70-99); Magnesium 1.8 mg/dl (1.6-2.3); Potassium 4.3 mmol/L (3.5-5.1); Sodium 136 mmol/L (135-145); eGFR > 60.00
[2023-11-08] MEDS: PEPCID 20 MG PO ×2 (07:51→21:12)
[2023-11-08] MEDS: PRISTIQ 25 MG PO (07:51)
[2023-11-08] MEDS: FLORASTOR 250 MG PO (07:51)
[2023-11-08] MEDS: VISBIOME 2 CAP PO (07:51)
[2023-11-08] MEDS: TYLENOL 650 MG PO (07:51)
--- NOTE | 2023-11-08 10:43 | W.PN.HOSP.TC ---
Today's Communication/Plan
-
see note
Assessment / Plan
Assessment / Plan
Subacute diarrhea
C diff colitis on 10/21/23
-Patient initially had felt to be having traveler's diarrhea for which patient got levofloxacin course last month
-Patient got C. difficile colitis earlier this month diagnosed in ER and finished 10 days of oral vancomycin
-Patient presented fourth time for recurrence of diarrhea
-No electrolyte imbalance/afebrile/denies significant nausea/vomiting
-Suspecting relapse of C. difficile versus other etiology
-Check stool studies with ova and parasite and C. difficile.
-Maintain on low residue diet
-Patient did not have any more diarrhea in night but back on diet and feeling may have repeat episode, monitor and get sample if develops diarrhea.
-Maintain on empiric vancomycin therapy until Cdiff relapse ruled out
Syncope
-Presumed volume depletion related
-BP improved today
-Negative ortho vitals
JULIETA
-Ferritin of ~ 5
-last C-scope one year back in [place], verbal report of being neg
-Start on IV ferlicit with transition to oral iron at discharge
-will need f/u repeat iron panel/cbc with PCP in few months
DVT PPX -scd
Full code
Anticipated Discharge: 24 - 48 hours
Subjective/Interval History
-
Date of Service: November 08, 2023
no reported BM overnight
some lower abd discomfort
no nausea/vomiting
able to tolerate diet
Objective Data
-
Labs:
Laboratory Results
11/08/23
06:10
WBC 4.6 L
Hgb 8.1 L
Hct 26.1 L
Plt Count 246 D
Sodium 136
Potassium 4.3
Chloride 107
Carbon Dioxide 22
BUN 14
Creatinine 0.8
Glucose 81
Calcium 8.7
Vital Signs:
Vital Signs
Temp Pulse Resp BP Pulse Ox
97.8 F 79 17 113/71 98
11/08/23 07:24 11/08/23 07:24 11/08/23 07:24 11/08/23 07:24 11/08/23 07:24
I&O
11/07/23 11/08/23 11/09/23
06:59 06:59 06:59
Intake Total 2279
Balance 2279
Review of Systems
-
Respiratory: Reports No Symptoms
Cardiac: Reports No Symptoms
Abdomen/GI: Reports Abdominal Pain; Denies Nausea, Vomiting or Diarrhea
Physical Exam
-
General: No Apparent Distress and Comfortable
HEENT: Negative Oxygen
Respiratory: Clear to Auscultation
Cardiac: Regular Rhythm and S1/S2; Negative Murmur or Rub
GI: Soft, Nondistended, Normal Bowel Sounds and Tender (Lower abd)
Musculoskeletal: No Edema
Neuro: Awake, Alert, Oriented, No Motor Deficits and Nonfocal/Grossly Intact
Psych: Calm
[2023-11-08] MEDS: FERRLECIT 110 MG IV (14:35)
--- NOTE | 2023-11-08 15:12 | CM ---
Reviewed chart, met with patient to obtain information for assessment. Patient stated that she lives with her spouse in a two story home with two steps to enter. She described herself as independent with all ADLs, personal care, dressing and
bathing. She ambulates without device. 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 She can drive and can get to her appointments and do all of her own shopping.
Patient has never had VN services.
She has never been to a SNF.
Patient has a prescription plan and uses, [facility] in [place] for all of her medications.
Patient's PCP is, not listed.
Patient stated that she would like to return home when stable.
Plan: Case management will continue to follow and assist with discharge planning. Home when medically cleared.
--- NOTE | 2023-11-08 15:35 | CON.ID ---
Consultation
-
Date/Time Consultation Requested: 11/08/23 14:11
Date/Time Consultation Performed: 11/08/23 15:36
Requesting Provider: Dr Jenkins
Performing Provider: Dr Pike
Reason for Consultation: second occurance of C difficile
Chief Complaint / Past History
Chief Complaint
Syncope and Diarrhea
History of Present Illness
Ms Elias is a 63 year old female with history of recent diagnosis of C diffcile now with relapse. She initially started about 5 weeks ago after returning from a stay in [place] when she was diagnosed with traveler's diarrhea and treated with
levofloxacin. Symptoms did not resolve with levaquin and she came to ER on October 20 and was diagnosed for first episode of C. difficile colitis. She was prescribed 10 days of vancomycin therapy which she took as prescribed and finished on 10/31/23.
After the antibiotics she had ongoing frequency of stools progressing to allan diarrhea. Now with 5-10 diarrheal stools per day for last few days. Reports that she has stool shortly after eating. Of note with weight loss of 10 pounds, loss of
energy. Today she syncopized at home and was noted to have tachycardia. Presented to the ER
Since arrival here she has been afebrile, bp stable, wbc now 4.6, hgb 8.1 plt 246, na 136, cr 0.8, c diff remains stool and antigen positive, giardia/crypto were negative, stool cultures were also sent. Has received IVF and and restarted oral
vancomycin and reports notable improvement. ID is consulted for assistance with management.
Past History
Additional Past Medical History:
anemia
anxiety/depression
Past Surgical History: None
Allergy History:
No Known Allergies Allergy (Verified 11/07/23 12:33)
Medications Reviewed: Yes
Social History
Tobacco: Non-Smoker
Alcohol: Occasional
Drug: None
Family History
Family History: Not Pertinent
Review of Systems
Review of Systems
General: Negative Fever or Chills
All systems: All other systems were reviewed and were negative
Vital Signs
Temp Pulse Resp BP Pulse Ox
98.4 F 75 17 116/71 97
11/08/23 15:08 11/08/23 15:08 11/08/23 15:08 11/08/23 15:08 11/08/23 15:08
Physical Exam
Physical Exam
Constitutional: No Acute Distress
Cardiovascular: Regular Rate and S1/S2; Negative Murmur or Rub
Pulmonary: Clear and Symmetric; Negative Wheezes, Rales or Rhonchi
Gastrointestinal: Soft, Tender, Non Distended and Normal Bowel Sounds
Skin: Warm and Dry; Negative Rash or Jaundice
Lab / Diagnostic Study Results
11/08/23 06:10
11/08/23 06:10
Abs Immat Gran (auto) 0.0 10^3/uL (0-0.05) 11/07/23 13:32
Absolute Neuts (auto) 2.8 10^3/uL (1.4-6.5) 11/07/23 13:32
Absolute Lymphs (auto) 1.7 10^3/uL (1.2-3.4) 11/07/23 13:32
Absolute Monos (auto) 0.4 10^3/uL (0.1-0.6) 11/07/23 13:32
Absolute Basos (auto) 0.0 10^3/uL (0-0.2) 11/07/23 13:32
Immature Gran % 0.2 % (0-0.5) 11/07/23 13:32
Neutrophils % 56.4 % (42.2-75.2) 11/07/23 13:32
Lymphocytes % 34.0 % (20.5-51.1) 11/07/23 13:32
Monocytes % 8.8 % (1.7-9.3) 11/07/23 13:32
Eosinophils % 0.0 % (0-6) 11/07/23 13:32
Basophils % 0.6 % (0-2) 11/07/23 13:32
Microbiology Results
Micro:
11/08/23 12:28 - Final
Feces/Stool Negative for Norovirus GI and GII.
11/08/23 12:28 Cryptosporidium/Giardia - Final
Feces/Stool Negative for Cryptosporidium and/or Giardia Lamblia
antigens.
11/08/23 12:28 C. difficile GDH Antigen & Toxins - Final
Feces/Stool Toxigenic C.difficile Positive
11/08/23 12:28 Salmonella/Shigella Culture - Pending
Feces/Stool Campylobacter Culture - Pending
Shiga Toxin Test - Pending
Assessment / Plan
Recurrent C difficile
- will move forward with arranging oral fecal transplant as outpatient
- oral vancomycin x10 days
- if further improved can discharge in the AM
- encouraged cultured foods and regular diet with fibrous foods fruits/vegetables (not low residual)
Planned travel to [place] in two weeks
- at this moment doesnt have to be changed, though treatment window is narrow
- when symptoms improved, she can follow up in my clinic for IM typhoid and hep A vaccines
--- NOTE | 2023-11-08 20:10 | PTCARENOTE ---
received pt from ED, refused 4th floor room. Sent to private room 3W. Pt arrived approx 1800, oriented to room, VSS obtained, assessment complete. Pt resting, call cook within reach, very anxious about her medications being given on time. Assured pt
that pharmacy was expediting as best they could.
[2023-11-09] MEDS: FIRVANQ 125 MG PO ×3 (00:07→12:26)
[2023-11-09] MEDS: NSS 1000 IV (00:07)
[2023-11-09 03:35] VITALS: BP 101/61
--- NOTE | 2023-11-09 04:04 | DOWNTIME ---
There was a [employer] Client Human Capital Consultant Downtime on 11/09/2023 from 0100 to 11/09/2023 at 0252. Downtime documentation of patient's care, including medication administrations, has been reconciled in the electronic record per guidelines. Refer to the
patient's paper chart under the miscellaneous tab to see printed paper medication records and downtime forms.
[2023-11-09 07:23] LABS: Hemoglobin 7.7 g/dL (12.0-16.0); Mean Corp Hgb Conc. 30.8 g/dL (33.0-37.0); Mean Corpuscular Volume 74.6 fL (81.0-99.0); Mean Platelet Volume 10.5 fL (7.4-10.4); Platelet Count 230 10^3/uL (130-400); Red Blood Cell Count 3.35 10^6/uL (4.20-5.40); Red Cell Dist. Width 15.1 % (11.5-14.5); White Blood Cell Count 3.7 10^3/uL (4.8-10.8)
[2023-11-09 07:30] LABS: Blood Urea Nitrogen 4 mg/dl (7-17); Calcium 9.1 mg/dl (8.4-10.2); Carbon Dioxide 27 mmol/L (22-30); Chloride 111 mmol/L (98-107); Estimated Creatinine Clearance 65 ml/min; Glucose 81 mg/dl (70-99); Potassium 4.8 mmol/L (3.5-5.1); Sodium 139 mmol/L (135-145); eGFR > 60.00
[2023-11-09] MEDS: PEPCID 20 MG PO (07:42)
[2023-11-09] MEDS: PRISTIQ 25 MG PO (07:42)
[2023-11-09] MEDS: VISBIOME 2 CAP PO (07:42)
[2023-11-09 07:51] VITALS: BP 121/74
--- NOTE | 2023-11-09 09:03 | PN.CDI ---
CDI
- -
CDI:
Physician Documentation Request
Admit Date: 11/07/23 17:33
Dear Doctor Gregory,
Please review the following and provide your response in the progress notes.
Clinical Indicators:
PN, 11/07
#JULIETA
#...-Ferritin of ~ 5
#...-Start on IV ferlicit with transition to oral iron at discharge
Laboratory Tests
11/07/23 11/08/23 11/09/23
13:32 06:10 06:33
RBC 4.31 3.50 L 3.35 L
Hgb 9.8 L 8.1 L 7.7 L
Hct 31.5 L 26.1 L 25.0 L
Based on the above and your clinical assessment, please clarify the acuity/specificity of the anemia evaluated, monitored and/or treated?
Acute blood loss anemia with baseline chronic anemia (Chronic JULIETA, other, etc.)
Chronic iron deficiency anemia due to blood loss
Precipitous drop in hematocrit
Other
Use of terms such as suspected, likely, concern for, or probable (associated with a specific diagnosis that is being evaluated, monitored, or treated as if it exists) are acceptable and can be coded in the inpatient setting, when documented at the
time of discharge.
Thank you,
Chandrika Davis RN BSN CCDS
CDI Specialist
please contact via tiger text
Please use your independent medical judgment in providing your response.
[2023-11-09 09:52] VITALS: BMI 20.2
[2023-11-09 10:53] VITALS: BP 118/66
[2023-11-09 10:54] VITALS: BP 118/66; BP 121/88; BP 127/75; PULSE 87; PULSE 90; PULSE 92
--- NOTE | 2023-11-09 12:56 | W.PN.HOSP.TC ---
Addendum entered and electronically signed by Bobby Jenkins MD 11/10/23 07:55:
Precipitous drop in hematocrit
-patient was volume depleted and post IVF Hbg dropped. Have JULIETA but no acute blood loss.
Original Note:
Today's Communication/Plan
-
d/c home
Assessment / Plan
Assessment / Plan
Relapse of Cdiff colitis
C diff colitis on 10/21/23
-Patient initially had felt to be having traveler's diarrhea for which patient got levofloxacin course last month
-Patient got C. difficile colitis earlier this month diagnosed in ER and finished 10 days of oral vancomycin
-Patient presented fourth time for recurrence of diarrhea
-No electrolyte imbalance/afebrile/denies significant nausea/vomiting
-Patient stool tested positive for C. difficile and will maintain on 10 days repeat course of vancomycin per ID
-Patient will get past Vowst/Fecal microbiome transplant in ID office.
Syncope
-Presumed volume depletion related
-BP improved today
-Negative ortho vitals
JULIETA
-Ferritin of ~ 5
-last C-scope one year back in [place], verbal report of being neg
-Start on IV ferlicit with transition to oral iron at discharge
-will need f/u repeat iron panel/cbc with PCP in few months
DVT PPX -scd
Full code
More than 30 minutes spent in discharge including
Final examination of the patient
Summarizing hospital stay
Instructions for continuing care to all relevant caregivers
Preparation of discharge records, prescriptions, and referral forms
Total time spent (in minutes): 38 mins
Anticipated Discharge: Today
Subjective/Interval History
-
Date of Service: November 09, 2023
Patient having soft bowel movement overnight
No abdominal pain/nausea/vomiting
Objective Data
-
Labs:
Laboratory Results
11/09/23
06:33
WBC 3.7 L
Hgb 7.7 L
Hct 25.0 L
Plt Count 230
Sodium 139
Potassium 4.8
Chloride 111 H
Carbon Dioxide 27
BUN 4 L
Creatinine 0.7
Glucose 81
Calcium 9.1
Vital Signs:
Vital Signs
Temp Pulse Resp BP Pulse Ox
97.9 F 87 16 118/66 98
11/09/23 10:53 11/09/23 10:53 11/09/23 10:53 11/09/23 10:53 11/09/23 10:53
I&O
11/08/23 11/09/23 11/10/23
06:59 06:59 06:59
Intake Total 2280 / 2280 2790 / 2790
Balance 2280 / 2280 2790 / 2790
Review of Systems
-
Respiratory: Reports No Symptoms
Cardiac: Reports No Symptoms
Abdomen/GI: Reports No Symptoms
Physical Exam
-
General: No Apparent Distress and Comfortable
HEENT: Negative Oxygen
Respiratory: Clear to Auscultation
Cardiac: Regular Rhythm and S1/S2; Negative Murmur or Rub
GI: Soft, Nondistended, Normal Bowel Sounds and Tender (Lower abd)
Musculoskeletal: No Edema
Neuro: Awake, Alert, Oriented, No Motor Deficits and Nonfocal/Grossly Intact
Psych: Calm
[2023-11-09] MEDS: FERRLECIT 110 MG IV (13:12)
[2023-11-09 14:29] VITALS: BP 138/72
--- NOTE | 2023-11-09 18:41 | W.PN.ID1 ---
Date of Service
Date of Service: November 09, 2023
Today's Communication
plan unchanged, sent in paperwork for fecal transplant
extended discussion with patient and
Assessment / Plan
Recurrent C difficile
- will move forward with arranging oral fecal transplant as outpatient
- oral vancomycin x10 days
- agree with dc
- encouraged cultured foods and regular diet with fibrous foods fruits/vegetables (not low residual)
Planned travel to [place] in two weeks
- at this moment doesnt have to be changed, though treatment window is narrow
- when symptoms improved, she can follow up in my clinic for IM typhoid and hep A vaccines
Chief Complaint
-: C-diff (recurrent)
Subjective / Review of Systems
afebrile
stools becoming formed now mashed potato consistency - no blood in the stool
no abdominal tenderness
Vital Signs / Physical Exam
Vital Signs
Vital Signs
Temp Pulse Resp BP Pulse Ox
98.0 F 52 17 138/72 98
11/09/23 14:29 11/09/23 14:29 11/09/23 14:29 11/09/23 14:29 11/09/23 14:29
Physical Exam
Constitutional: No Acute Distress
Cardiovascular: Regular Rate and S1/S2; Negative Murmur or Rub
Pulmonary: Symmetric and Non Labored
Gastrointestinal: Non Distended
Skin: Dry; Negative Rash or Jaundice
Neurological: Awake
Objective Data
Lab Data
Lab Results
11/09/23 06:33
11/09/23 06:33
Estimated Creat Clear 65 ml/min 11/09/23 06:33
Total Bilirubin 0.4 mg/dl (0.2-1.3) 11/07/23 13:32
AST 51 U/L (14-36) H 11/07/23 13:32
ALT 44 U/L (0-35) H 11/07/23 13:32
Alkaline Phosphatase 98 U/L (38-126) 11/07/23 13:32
Most recent labs reviewed.
Micro Results:
11/08/23 12:28 Salmonella/Shigella Culture - Preliminary
Feces/Stool Culture in Progress
Campylobacter Culture - Preliminary
Culture in Progress
Shiga Toxin Test - Pending
11/08/23 12:28 - Final
Feces/Stool Negative for Norovirus GI and GII.
11/08/23 12:28 Cryptosporidium/Giardia - Final
Feces/Stool Negative for Cryptosporidium and/or Giardia Lamblia
antigens.
11/08/23 12:28 C. difficile GDH Antigen & Toxins - Final
Feces/Stool Toxigenic C.difficile Positive
Care Review
Plan reviewed with: Physician (Dr Jenkins - miriam)
--- NOTE | 2023-11-10 07:58 | W.DCSUMMARY ---
Discharge Summary
Discharge Data
Date of Admission: 11/07/23
Date of Discharge: 11/09/23
-
Pending Results: No
Hospital Course
Discharging Physician : Dr Bobby Jenkins
Disposition : Home
Primary care physician : None
Principal Discharge diagnosis :
Clostridium difficile colitis relapse
Syncope
Chronic Discharge diagnosis :
None
Hospital Course :
Patient is a 63-year-old female with above-mentioned past medical history came to ER for having recurrence of diarrhea. Patient has been to ER 3 times in the last 2 months and was tested positive for C. difficile colitis and was provided 10 days of
oral vancomycin course. After finishing course of vancomycin patient in improvement in diarrhea frequency although patient started to having worsening diarrhea again. Patient did significant volume depletion and ended up having a syncopal episode
at home on the day of ER visit. Came to ER for further evaluation. Patient was started on IV fluid and repeat stool studies were sent including C. difficile. Unfortunately patient C. difficile came positive again this time and was diagnosed to
have relapse. ID was involved in care who recommended another 10 days of vancomycin course followed by which patient will have valve vowst/FMT in office. After improvement in symptoms patient was discharged home with follow-up with ID in office.
Important imaging findings :
None
Procedure findings :
None
Discharge Plan
-
Patient Disposition: Home (Routine Discharge)
Discharge Diagnosis/Procedures: C diff colitis relapse, Iron def anemia
Condition: Fair
Diet: Regular
Additional Diets: Include green leafy vegetables
Activity: As tolerated
Driving Restrictions: No driving for 24 hours
Bathing Restrictions: OK to Shower
Referrals:
NONE,* [Family Provider] -
Corina Pike MD [Active] -
Prescriptions:
New
vancomycin 25 mg/mL recon soln
125 mg PO Q6H 8 Days Qty: 150 0RF
ferrous sulfate 325 mg (65 mg iron) tablet
325 mg PO Q OTHER DAY Qty: 30 0RF
Visbiome 112.5 billion cell capsule
1 cap PO DAILY Qty: 30 0RF
vancomycin 125 mg capsule
125 mg PO Q6H Qty: 8 0RF
Continued
clonazepam 1 mg Tablet
1 - 2 mg PO HSPRN PRN (Reason: sleep)
desvenlafaxine succinate [Pristiq] 25 mg Tablet Extended Release 24 Hr
25 mg PO DAILY
Discharge Orders:
Discharge Patient (As Directed); Ordered 11/09/23
Ordered By: Bobby Jenkins
Discharge Date and Time
Discharge Date/Time: 11/09/23 15:15
Print Language: DANISH
== END 2023-11-09 15:15 | disposition home or self-care (01) | DRG 373 ==
LOC: 3 WEST ACU 17:33
PROVIDERS: Physician Assistant Medical; ADMITTING PHYSICIAN Hospitalist; CONSULT PHYSICIAN Student in an Organized Health Care Education/Training Program; EMERGENCY PHYSICIAN Emergency Medicine
DX: A04.72 Enterocolitis due to Clostridium difficile, not specified as recurrent (principal); D50.9 Iron deficiency anemia, unspecified; E86.0 Dehydration; R55 Syncope and collapse; R63.4 Abnormal weight loss
CPT/HCPCS: 80048; 80053; 82607; 82728; 82746; 83540; 83550; 83690; 83735; 85025; 85027; 87045; 87046; 87077; 87324; 87328; 87329; 87427; 87449; 87798; 93005; 96360; 96361; 99284; J2916

== ENCOUNTER → 2024-11-21 09:11 | Outpatient (REF) | payer MEDICARE, OTHER, SELFPAY | LOC: HWWDC 09:11 | PROVIDERS: ATTENDING PHYSICIAN Physician Assistant | DX: Z12.31 Encounter for screening mammogram for malignant neoplasm of breast (principal) | CPT/HCPCS: 77063; 77067 ==